=== PATIENT | male | born 1970 | race Caucasian/White ===

== ENCOUNTER 2017-04-14 10:36 | Emergency (ER) | payer BC ==
[2017-04-14 11:02] VITALS: BP 133/89
--- NOTE | 2017-05-05 07:57 | UC ---
Throat Pain/Nasal Krystian HPI - HPI Summary HPI Summary: Patient presents with a past medical history of sinus problems. She presents today with complaints of one month onset progressively worsening sinus pain, pressure and increased nasal discharge. Dhe reports nasal plugging, and stuffiness. Denies fever or chills. - History of Current Complaint Chief Complaint: UCRespiratory Stated Complaint: SINUS ISSUE Time Seen by Provider: 04/14/17 12:01 Hx Obtained From: Patient Onset/Duration: Gradual Onset Severity: Moderate Pain Intensity: 2 Pain Scale Used: 0-10 Numeric Cough: Nonproductive - Allergies/Home Medications Allergies/Adverse Reactions: Allergies Allergy/AdvReac Type Severity Reaction Status Date / Time No Known Allergies Allergy Verified 06/17/15 13:38 PMH/Surg Hx/FS Hx/Imm Hx Previously Healthy: Yes - Surgical History Surgical History: Yes Surgery Procedure, Year, and Place: appendectomy. Right ankle. left knee - Social History Alcohol Use: Weekly Alcohol Amount: 3x per week, 2 drinks per sitting Substance Use Type: None Smoking Status (MU): Never Smoked Tobacco Review of Systems Constitutional: Fatigue Skin: Negative Eyes: Negative ENT: Nasal Discharge, Sinus Congestion, Sinus Pain/Tenderness All Other Systems Reviewed And Are Negative: Yes Physical Exam Triage Information Reviewed: Yes Appearance: Ill-Appearing Vital Signs: Initial Vital Signs Temp 98 F 04/14/17 11:00 Pulse 85 04/14/17 11:00 Resp 18 04/14/17 11:00 BP 133/89 04/14/17 11:00 Pulse Ox 99 04/14/17 11:00 Vital Signs Reviewed: Yes Eye Exam: Normal ENT: Positive: Nasal congestion, Nasal drainage Neck exam: Normal Respiratory Exam: Normal Cardiovascular Exam: Normal Throat Pain/Nasal Course/Dx - Course Course Of Treatment: Patient presents with a sinus infection and was treated with ABX. Discharged home instable condition. - Differential Dx/Diagnosis Differential Diagnosis/HQI/PQRI: Sinusitis Provider Diagnoses: sinusitis Discharge - Discharge Plan Condition: Stable Disposition: HOME Prescriptions: Amoxicillin/Clavulanate TAB* [Augmentin TAB 500 mg*] 500 mg PO BID #20 tab Patient Education Materials: Sinusitis (ED) Referrals: Rashaad Rivera MD [Primary Care Provider] - Samir Solomon MD [Medical Doctor] -
== END 2017-04-14 12:25 | disposition home or self-care (01) ==
LOC: UCEAST 10:36
DX: J34.9 Unspecified disorder of nose and nasal sinuses (principal); R53.83 Other fatigue
CPT/HCPCS: 99211; G0463

== ENCOUNTER 2017-08-16 18:21 | Emergency (ER) | payer BC ==
[2017-08-16 20:45] LABS: Hematocrit 45 % (42-52); Hemoglobin 15.6 g/dl (14.0-18.0); Mean Corpuscular HGB Conc 35 g/dl (31-36); Mean Corpuscular Hemoglobin 31 pg (27-31); Mean Corpuscular Volume 88 fL (80-94); Mean Platelet Volume 9 um3 (7.4-10.4); Red Blood Count 5.08 10^6/ul (4.0-5.4); Red Cell Distribution Width 12 % (10.5-15); White Blood Count 9.7 10^3/ul (3.5-10.8)
[2017-08-16 21:01] LABS: Albumin 4.4 g/dL (3.2-5.2); BUN/Creatinine Ratio 14.3 (8-20); C Reactive Protein 1.76 mg/L (< 5.00); Calcium 9.7 mg/dL (8.6-10.3); EGFR African American 70.5 (>60); EGFR Non-African American 54.8 (>60); Globulin 3.2 g/dL (2-4); Potassium 3.9 mmol/L (3.5-5.0); Total Bilirubin 0.7 mg/dL (0.2-1.0); Total Protein 7.6 g/dL (6.4-8.9)
[2017-08-16] MEDS ORDERED: NS 0.9% 1000 ML* 1,000 ML IV SCH (22:15)
[2017-08-16] MEDS ORDERED: NS 0.9% 1000 ML* 1,000 ML IV ONE (22:15)
[2017-08-16] MEDS ORDERED: Iodixanol* (CONTRAST) 320 MG/ML 100 ML SDV IV ONE (23:03)
[2017-08-16 23:57] LABS: Urine Bilirubin Negative (Negative); Urine Glucose Negative (Negative); Urine Nitrite Negative (Negative)
--- NOTE | 2017-08-17 00:21 | ED ---
Bill Jc Nikita, scribed for Florencio Natarajan MD on 08/16/17 at 2235 . Abdominal Pain/Male - HPI Summary HPI Summary: This patient is a 46 year old M presenting to ED with a chief complaint of L mid abdominal pain since 1500. The CC is described as sudden, sharp, and non- radiating. The patient rates the pain 7/10 in severity. Symptoms aggravated by movement. Symptoms alleviated by laying supine. Patient denies any strenuous activity, SOB, urinary symptoms, and bowel symptoms. - History of Current Complaint Chief Complaint: EDAbdPain Stated Complaint: RT SIDE ABD PAIN Time Seen by Provider: 08/16/17 21:29 Hx Obtained From: Patient Onset/Duration: Sudden Onset, Lasting Hours, Still Present Timing: Constant, Lasting Hours Severity Initially: Moderate Severity Currently: Moderate Pain Intensity: 7 Pain Scale Used: 0-10 Numeric Location: Other - L mid abdominal pain Radiates: No Character: Sharp Aggravating Factor(s): Movement Alleviating Factor(s): Position - supine Associated Signs And Symptoms: Positive: Other - Patient denies any strenuous activity, SOB, urinary symptoms, and bowel symptoms. - Allergies/Home Medications Allergies/Adverse Reactions: Allergies Allergy/AdvReac Type Severity Reaction Status Date / Time No Known Allergies Allergy Verified 08/16/17 18:35 PMH/Surg Hx/FS Hx/Imm Hx Cardiovascular History: Reports: Hx Hypertension, Other Cardiovascular Problems/ Disorders - htn GI History: Reports: Other GI Disorders - abd pain/constipation, diverticulitis , kidney stones Sensory History: Denies: Hx Contacts or Glasses Opthamlomology History: Denies: Hx Contacts or Glasses - Surgical History Surgery Procedure, Year, and Place: appendectomy. Right ankle. left knee Infectious Disease History: No Infectious Disease History: Denies: Hx Clostridium Difficile, Hx Hepatitis, Hx Human Immunodeficiency Virus (HIV), Hx of Known/Suspected MRSA, Hx Shingles, Hx Tuberculosis, Hx Known/ Suspected VRE, Hx Known/Suspected VRSA, History Other Infectious Disease, Traveled Outside the [place] in Last 30 Days - Family History Known Family History: Positive: Hypertension - Social History Alcohol Use: Weekly Alcohol Amount: 3x per week, 2 drinks per sitting Substance Use Type: Reports: None Smoking Status (MU): Never Smoked Tobacco Review of Systems Negative: Shortness Of Breath Positive: Abdominal Pain - L mid, Other - denies bowel symptoms Positive: no symptoms reported Positive: Other - denies strenuous activity All Other Systems Reviewed And Are Negative: Yes Physical Exam Triage Information Reviewed: Yes Vital Signs On Initial Exam: Initial Vitals Temp Pulse Resp BP Pulse Ox 98.8 F 90 20 162/83 98 08/16/17 18:32 08/16/17 18:32 08/16/17 18:32 08/16/17 18:32 08/16/17 18:32 Vital Signs Reviewed: Yes Appearance: Positive: Well-Appearing, No Pain Distress Skin: Positive: Warm, Skin Color Reflects Adequate Perfusion, Dry Head/Face: Positive: Normal Head/Face Inspection Eyes: Positive: EOMI, ZACHARY ENT: Positive: Normal ENT inspection Neck: Positive: Supple, Nontender Respiratory/Lung Sounds: Positive: Clear to Auscultation, Breath Sounds Present Cardiovascular: Positive: RRR Abdomen Description: Positive: Soft, Other: - tender to palpation in L upper quadrant and L upper lateral region Bowel Sounds: Positive: Present Musculoskeletal: Positive: Normal, Strength/ROM Intact Neurological: Positive: Normal, Sensory/Motor Intact, Alert, Oriented to Person Place, Time Psychiatric: Positive: Affect/Mood Appropriate Diagnostics - Vital Signs Vital Signs Temp Pulse Resp BP Pulse Ox 08/16/17 18:32 98.8 F 90 20 162/83 98 - Laboratory Lab Results: Lab Results 08/16/17 08/16/17 08/16/17 Range/Units 20:37 20:37 20:37 WBC 9.7 (3.5-10.8) 10^3/ul RBC 5.08 (4.0-5.4) 10^6/ul Hgb 15.6 (14.0-18.0) g/dl Hct 45 (42-52) % MCV 88 (80-94) fL MCH 31 (27-31) pg MCHC 35 (31-36) g/dl RDW 12 (10.5-15) % Plt Count 259 (150-450) 10^3/ul MPV 9 (7.4-10.4) um3 Neut % (Auto) 58.8 (38-83) % Lymph % (Auto) 31.2 (25-47) % Emanuel % (Auto) 8.1 (1-9) % Eos % (Auto) 0.9 (0-6) % Baso % (Auto) 1.0 (0-2) % Absolute Neuts (auto) 5.7 (1.5-7.7) 10^3/ul Absolute Lymphs (auto) 3.0 (1.0-4.8) 10^3/ul Absolute Monos (auto) 0.8 (0-0.8) 10^3/ul Absolute Eos (auto) 0.1 (0-0.6) 10^3/ul Absolute Basos (auto) 0.1 (0-0.2) 10^3/ul Absolute Nucleated RBC 0 10^3/ul Nucleated RBC % 0 Sodium 134 (133-145) mmol/L Potassium 3.9 (3.5-5.0) mmol/L Chloride 99 L (101-111) mmol/L Carbon Dioxide 29 (22-32) mmol/L Anion Gap 6 (2-11) mmol/L BUN 20 (6-24) mg/dL Creatinine 1.40 H (0.67-1.17) mg/dL Est GFR ( Amer) 70.5 (>60) Est GFR (Non-Af Amer) 54.8 (>60) BUN/Creatinine Ratio 14.3 (8-20) Glucose 101 H (70-100) mg/dL Lactic Acid 0.6 (0.5-2.0) mmol/L Calcium 9.7 (8.6-10.3) mg/dL Total Bilirubin 0.70 (0.2-1.0) mg/dL AST 23 (13-39) U/L ALT 26 (7-52) U/L Alkaline Phosphatase 58 (34-104) U/L C-Reactive Protein 1.76 (< 5.00) mg/L Total Protein 7.6 (6.4-8.9) g/dL Albumin 4.4 (3.2-5.2) g/dL Globulin 3.2 (2-4) g/dL Albumin/Globulin Ratio 1.4 (1-3) Lipase 50 (11.0-82.0) U/L Urine Color Urine Appearance Urine pH (5-9) Ur Specific Holland (1.010-1.030) Urine Protein (Negative) Urine Ketones (Negative) Urine Blood (Negative) Urine Nitrate (Negative) Urine Bilirubin (Negative) Urine Urobilinogen (Negative) Ur Leukocyte Esterase (Negative) Urine Glucose (Negative) 08/16/17 Range/Units 20:39 WBC (3.5-10.8) 10^3/ul RBC (4.0-5.4) 10^6/ul Hgb (14.0-18.0) g/dl Hct (42-52) % MCV (80-94) fL MCH (27-31) pg MCHC (31-36) g/dl RDW (10.5-15) % Plt Count (150-450) 10^3/ul MPV (7.4-10.4) um3 Neut % (Auto) (38-83) % Lymph % (Auto) (25-47) % Emanuel % (Auto) (1-9) % Eos % (Auto) (0-6) % Baso % (Auto) (0-2) % Absolute Neuts (auto) (1.5-7.7) 10^3/ul Absolute Lymphs (auto) (1.0-4.8) 10^3/ul Absolute Monos (auto) (0-0.8) 10^3/ul Absolute Eos (auto) (0-0.6) 10^3/ul Absolute Basos (auto) (0-0.2) 10^3/ul Absolute Nucleated RBC 10^3/ul Nucleated RBC % Sodium (133-145) mmol/L Potassium (3.5-5.0) mmol/L Chloride (101-111) mmol/L Carbon Dioxide (22-32) mmol/L Anion Gap (2-11) mmol/L BUN (6-24) mg/dL Creatinine (0.67-1.17) mg/dL Est GFR ( Amer) (>60) Est GFR (Non-Af Amer) (>60) BUN/Creatinine Ratio (8-20) Glucose (70-100) mg/dL Lactic Acid (0.5-2.0) mmol/L Calcium (8.6-10.3) mg/dL Total Bilirubin (0.2-1.0) mg/dL AST (13-39) U/L ALT (7-52) U/L Alkaline Phosphatase (34-104) U/L C-Reactive Protein (< 5.00) mg/L Total Protein (6.4-8.9) g/dL Albumin (3.2-5.2) g/dL Globulin (2-4) g/dL Albumin/Globulin Ratio (1-3) Lipase (11.0-82.0) U/L Urine Color Colorless Urine Appearance Clear Urine pH 7.0 (5-9) Ur Specific [place] 1.004 L (1.010-1.030) Urine Protein Negative (Negative) Urine Ketones Negative (Negative) Urine Blood Negative (Negative) Urine Nitrate Negative (Negative) Urine Bilirubin Negative (Negative) Urine Urobilinogen Negative (Negative) Ur Leukocyte Esterase Negative (Negative) Urine Glucose Negative (Negative) Result Diagrams: 08/16/17 20:37 08/16/17 20:37 Lab Statement: Any lab studies that have been ordered have been reviewed, and results considered in the medical decision making process. - CT abd/pel CT Interpretation Completed By: Radiologist - Sigmoid diverticulitis resolved since 01/24/14 with no evidence of recurrence. No bowel obstruction, colitis, free fluid or free air. Appendix not seen. Unremarkable pancreas, kidneys and gallbladder. Coronary artery disease. ED physician has reviewed this radiology report and agrees. Abdominal Pain Fem Course/Dx - Course Assessment/Plan: This patient is a 46 year old M presenting to ED with a chief complaint of L mid abdominal pain since 1500. The CC is described as sudden, sharp, and non-radiating. The patient rates the pain 7/10 in severity. Symptoms aggravated by movement. Symptoms alleviated by laying supine. Patient denies any strenuous activity, SOB, urinary symptoms, and bowel symptoms. Sigmoid diverticulitis resolved since 01/24/14 with no evidence of recurrence. No bowel obstruction, colitis, free fluid or free air. Appendix not seen. Unremarkable pancreas, kidneys and gallbladder. Coronary artery disease. ED physician has reviewed this radiology report and agrees. In the ED course, pt was given fluids. Medications reviewed. BP noted and advised to follow up with PCP. Pt will be discharged. Pt is agreeable with this plan. DISCUSSED RESULTS WITH PATIENT/. SOME IMPROVEMENT IN ED. WILL F/U WITH PMD AND GET KIDNEY FUNCTION RECHECKED. RETURN IF WORSE. NO CRITICAL CARE TIME. - Diagnoses Provider Diagnoses: Abdominal pain, Kidney function abnormal Discharge - Discharge Plan Condition: Stable Disposition: HOME Patient Education Materials: Acute Abdominal Pain (ED), Impaired Kidney Function (ED) Referrals: Rashaad Rivera MD [Primary Care Provider] - Additional Instructions: FOLLOW UP WITH YOUR DOCTOR. CALL YOUR DOCTOR TOMORROW, 08/18/17 FOR FOLLOW UP; GET YOUR KIDNEY FUNCTION RECHECKED. DRINK PLENTY OF WATER. RETURN TO THE EMERGENCY DEPARTMENT FOR ANY WORSENING OF YOUR CONDITION; PAIN, FEVER, VOMITING OR QUESTIONS OR CONCERNS. The documentation as recorded by the Bill torres Nikita accurately reflects the service I personally performed and the decisions made by me, Florencio Natarajan MD.
[2017-08-17 00:29] VITALS: BP 114/68
--- NOTE | 2017-08-17 07:45 | RAD ---
CLINICAL HISTORY: Left lower quadrant pain COMPARISON: August 09, 2014 TECHNIQUE: Multiple contiguous axial CT scans were obtained of the abdomen and pelvis after the administration of intravenous contrast. Coronal and sagittal multiplanar reformations are submitted for review. Oral contrast was administered. Delayed images were obtained through the abdomen and pelvis. FINDINGS: LUNG BASES: The lung bases are clear. LIVER: The liver is diffusely low in attenuation compared to the spleen. There are no focal hepatic parenchymal masses. BILE DUCTS: There is no intrahepatic or extrahepatic biliary dilatation. GALLBLADDER: The gallbladder is normal, without pericholecystic inflammatory change. PANCREAS: The pancreas is normal, without mass or ductal dilatation. SPLEEN: Normal in size and appearance. UPPER GI TRACT: Evaluation of the gastrointestinal tract is limited by incomplete gastric distention. There is a 2 cm diverticulum of the second stage of the duodenum. SMALL BOWEL AND MESENTERY: The small bowel is normal in contour, course, and caliber. There is no obstruction or dilatation. COLON: There are multiple diverticula of the sigmoid colon. There is no pericolonic inflammatory change. ADRENALS: Normal bilaterally. KIDNEYS: There is a 0.8 cm simple cyst of the midpole of the left kidney. There is no hydronephrosis or nephrolithiasis. BLADDER: The bladder is smooth in contour. PELVIC ORGANS: The prostate gland is normal. The seminal vesicles are symmetric. AORTA: The aorta is normal. IVC: Unremarkable LYMPH NODES: There is no lymphadenopathy by size criteria. ABDOMINAL WALL: There is no evidence for abdominal wall hernia. BONES AND SOFT TISSUES: There are mild diffuse degenerative changes. OTHER: None IMPRESSION: 1. DIVERTICULOSIS WITHOUT PERICOLONIC INFLAMMATORY CHANGE TO SUGGEST DIVERTICULITIS. 2. FATTY INFILTRATION OF THE LIVER. 3. DIVERTICULUM OF THE SECOND STAGE OF THE DUODENUM.
== END 2017-08-17 00:37 | disposition home or self-care (01) ==
LOC: ED 18:21
DX: R10.9 Unspecified abdominal pain (principal); R94.4 Abnormal results of kidney function studies
CPT/HCPCS: 36415; 74177; 80053; 81003; 83605; 83690; 85025; 86140; 99283; Q9967